=== PATIENT | female | born 1990 | race Caucasian/White ===

== ENCOUNTER 2016-10-31 11:43 | Inpatient (IN) | payer BC ==
[2016-10-31] MEDS ORDERED: Sodium Chloride 0.9% 10 ML Syringe FLUSH PRN (13:51)
[2016-10-31] MEDS ORDERED: Carboprost Tromethamine 250 MCG/1 ML Amp IM PRN (13:51)
[2016-10-31] MEDS ORDERED: Misoprostol 400 MCG (4 X 100 MCG TAB) RECTAL PRN (13:51)
[2016-10-31] MEDS ORDERED: Ondansetron 4 MG/2 ML SDV IV PRN (13:51)
[2016-10-31] MEDS ORDERED: Lactated Ringers 500 ML IV ONE (13:51)
[2016-10-31] MEDS ORDERED: Methylergonovine 0.2 MG/1 ML Amp IM PRN (13:51)
[2016-10-31] MEDS ORDERED: Oxytocin/Normal Saline 30 UNIT/500 ML BAG IV SCH (14:15)
[2016-10-31] MEDS ORDERED: fentaNYL 100 MCG/2 ML SDV ITHECAL ONE (16:01)
[2016-10-31] MEDS ORDERED: hydrOXYzine HCl 25 MG Tab PO PRN (17:59)
[2016-10-31] MEDS: Lactated Ringers 1,000 ML IV SCH ×2 (18:11→20:00)
[2016-10-31] MEDS ORDERED: ePHEDrine 50 MG/ML SDV ONE (19:39)
[2016-10-31] MEDS ORDERED: fentaNYL 100 MCG/2 ML SDV ONE (19:39)
--- NOTE | 2016-10-31 20:07 | PCM.PREANE ---
Preanesthetic Assessment - Procedure Proposed Procedure: Intrathecal Narcotic for Labor Pain - Anesthesia/Transfusion/Family Hx Anesthesia History: No Prior Anesthesia Family History of Anesthesia Reaction: No Transfusion History: No Prior Transfusion(s) Intubation History: Unknown - Review of Systems General: No Symptoms Pulmonary: No Symptoms Cardiovascular: No Symptoms Gastrointestinal: No symptoms Neurological: No Symptoms Other: Reports: None - Physical Assessment NPO Status Date: 10/31/16 NPO Status Time: 11:00 Pulse: 85 O2 Sat by Pulse Oximetry: 99 Respiratory Rate: 16 Blood Pressure: 136/85 Temperature: 98.1 C Vital Signs: Last Vital Signs Temp 36.9 C 10/31/16 16:03 Pulse 83 10/31/16 16:03 Resp 16 10/31/16 16:03 BP 134/90 10/31/16 16:03 Pulse Ox Height: 1.68 m Weight: 72.575 kg ASA Class: 2 Mental Status: Alert & Oriented x3 Dentition: Reports: Normal Dentition ROM/Head Extension: Full Lungs: Clear to auscultation, Normal respiratory effort Cardiovascular: Regular Rate, Regular Rhythm - Lab Values: Laboratory Last Values WBC 14.0 10^3/uL (5.0-10.0) H 10/31/16 14:10 RBC 4.24 10^6/uL (4.2-5.4) 10/31/16 14:10 Hgb 12.7 g/dL (12.0-16.0) 10/31/16 14:10 Hct 37.2 % (37.0-47.0) 10/31/16 14:10 MCV 87.7 fL (80-100) 10/31/16 14:10 MCH 30.0 pg (27.0-34.0) 10/31/16 14:10 MCHC 34.1 g/dL (33.0-35.0) 10/31/16 14:10 Plt Count 206 10^3/uL (150-450) 10/31/16 14:10 - Allergies Allergies/Adverse Reactions: Allergies Allergy/AdvReac Type Severity Reaction Status Date / Time Penicillins Allergy Cannot Verified 10/31/16 14:17 Remember Sulfa (Sulfonamide Allergy Cannot Verified 10/31/16 14:17 Antibiotics) Remember - Blood Blood Available: No - Anesthesia Plan Pre-Op Medication Ordered: None - Acknowledgements Anesthesia Type Planned: Spinal Pt an Appropriate Candidate for the Planned Anesthesia: Yes Alternatives and Risks of Anesthesia Discussed w Pt/Guardian: Yes Pt/Guardian Understands and Agrees with Anesthesia Plan: Yes PreAnesthesia Questionnaire - Past Health History Medical/Surgical History: Denies Medical/Surgical History Hematologic History: Reports: Anemia - Infectious Disease History Infectious Disease History: Reports: Shingles, Other (see below) Other Infectious Disease History: hx of shingles - SUBSTANCE USE Smoking Status *Q: Never Smoker Tobacco Use Within Last Twelve Months: No Second Hand Smoke Exposure: No Recreational Drug Use History: No - HOME MEDS Home Medications: Home Meds Cholecalciferol (Vitamin D3) [Vitamin D] 1 tab PO DAILY 10/31/16 [History] Ferrous Sulfate [Iron] 1 tab PO BID 10/31/16 [History] Vits #93/Iron Fum/FA [ Formula Tablet] 1 tab PO DAILY 10/31/16 [History] - CURRENT (IN HOUSE) MEDS Current Meds: Current Medications Acetaminophen (Tylenol) 650 mg PO Q4H PRN PRN Reason: Pain (Mild 1-3) and fever Carboprost Tromethamine (Hemabate Ds) 250 mcg IM ASDIRECTED PRN PRN Reason: HEMORRHAGE Hydroxyzine HCl (Atarax) 50 mg PO ONETIME PRN PRN Reason: Pain Last Admin: 10/31/16 18:09 Dose: 50 mg Lactated Ringer's (Ringers, Lactated) 1,000 mls @ 125 mls/hr IV ASDIRECTED DAYAN Last Admin: 10/31/16 18:11 Dose: 125 mls/hr Oxytocin/Sodium Chloride (Pitocin In Ns 30 Unit/500 Ml) 30 unit in 500 mls @ 500 mls/hr IV TITRATE DAYAN PRN Reason: Protocol Methylergonovine Maleate (Methergine) 0.2 mg IM ASDIRECTED PRN PRN Reason: Hemorrhage Misoprostol (Cytotec) 800 mcg RECTAL ASDIRECTED PRN PRN Reason: Hemorrhage Ondansetron HCl (Zofran) 4 mg IV Q4H PRN PRN Reason: Nausea/Vomiting Last Admin: 10/31/16 19:35 Dose: 4 mg Sodium Chloride (Saline Flush) 10 ml FLUSH ASDIRECTED PRN PRN Reason: Keep Vein Open Discontinued Medications Ephedrine Sulfate (Ephedrine Sulfate) Confirm Administered Dose 50 mg .ROUTE .STK-MED ONE Stop: 10/31/16 19:40 Fentanyl (Sublimaze) Confirm Administered Dose 100 mcg .ROUTE .STK-MED ONE Stop: 10/31/16 19:40 Lactated Ringer's (Ringers, Lactated) 500 mls @ 500 mls/hr IV .BOLUS ONE Stop: 10/31/16 14:50 Sufentanil Citrate (Sufenta) Confirm Administered Dose 50 mcg .ROUTE .STK-MED ONE Stop: 10/31/16 19:41
--- NOTE | 2016-10-31 20:26 | PCM.SN ---
- Free Text/Narrative Note: Intrathecal Narcotic note: Patient ID'd consent signed after Risk benefit discussed. Preloaded with 1 liter fluid. Patient in sitting position, L4-5 space id'd sterile prep with Betadine and drape. Skin wheel with 1% lidocaine. 22 G Pencane needle advanced into SA space via 18 G needle. No Parasthesia, No Blood and Positive CSF, 6 mg Hyperbaric Marcaine, 20 mcg sufentanyl, 30 mcg fentanyl and 1 ml preservative free normal saline injected into the SA space. Immediate relieve during contractions is experienced by patient. Level T10 Bilateral. VSS
--- NOTE | 2016-10-31 23:02 | HP ---
REASON FOR ADMISSION: Onset of labor. HISTORY OF PRESENT ILLNESS: This delightful 26-year-old white female, 1, para 0, at 39 weeks' gestation presented today to the clinic with onset of contractions at 02:00 a.m. Reports that they have been getting progressively stronger and closer together. Describes some bloody show, but denies any active bright red bleeding and no leakage of fluid. The baby has been active. Her contractions on examination in the clinic were 2 minutes apart lasting approximately 45 seconds. Last week, her cervix was closed, long, and thick at a -2 station. This week, she was found to be 3 cm dilated, 90% effaced with the bag of water intact, vertex presentation in a TRUPTI position. She was having contractions every 2 to 3 minutes in the office and these were mild to moderate on palpation. She was subsequently sent over to the hospital for further evaluation and admission. Blood pressure was 130/90 on admission to the clinic. Her course was started in her first trimester, and she has been compliant with her visits. Her blood type is A positive, antibody screen was negative. Baseline hemoglobin is 13.5 with rechecks of 13.5 and 11.8. Platelet counts 276 and 241. Rubella immune. RPR nonreactive. HIV negative. Hepatitis B surface antigen nonreactive. TSH within normal limits. Hepatitis C nonreactive. One-hour sugar screen was 133 and a 3-hour testing was not completed. Her group B strep was negative. Ultrasound was done at 20-1/2 weeks' gestation with normal anatomy, posterior placenta, and they were not interested in gender. She did receive a flu shot and Tdap during this . She does have a history of prior chickenpox and shingles. GRAIN LOADER HISTORY: Otherwise noncontributory. CURRENT MEDICATIONS: Include her vitamins and iron b.i.d. ALLERGIES: Include penicillin and sulfa, though she is unsure of any reaction and it was just told that she was allergic to these when she was a child. PAST MEDICAL HISTORY: Otherwise unremarkable. She had oral surgery, but otherwise has not had any significant surgical history. FAMILY HISTORY: Positive for breast cancer, thyroid disease, and alcohol disease. Please see her records for details. SOCIAL HISTORY: to [place] in 2009. They have a dog. 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 Her , Francisco, teaches agricultural education classes in [employer]. They live 15 miles away in [place]. This is their 1st child, and they do not know the gender. She is a nonsmoker and has never smoked. She has no known history of alcohol or drug abuse. REVIEW OF SYSTEMS: Otherwise unremarkable. IMMUNIZATIONS: Up to date as noted. OBJECTIVE: Vital Signs: As noted on admit. HEENT: Negative. Lungs: Clear. Heart: Sounds regular. Abdomen: Gravid. : Cervix is 3 cm, 90%, bag of water is intact, -2 station. TRUPTI as noted. Extremities: With no significant edema. NST was showing a reactive reassuring tracing with baseline 145. Good variability. No decelerations. LABORATORY DATA: Hemoglobin is 12.7, platelet count 206. IMPRESSION: 1. A 26-year-old white female, 1, para 0 at 39 weeks' gestation. 2. Primigravida and early active labor. 3. Reactive reassuring NST. 4. A positive blood type. 5. Rubella immune. 6. Group B strep negative. 7. Hemoglobin 12.7, platelets 206. PLAN: The patient was admitted with routine admit orders. We will continue to follow her closely. She does have a plan and that has been reviewed with her. We will continue to follow and further management pending her clinical course in labor. ADDENDUM: At 04:30 p.m., the patient is making progress. Her cervix is now 5 cm dilated and 95+ percent effaced. The vertex is at -1 station between contractions. Bulging bag of water is noted and this was artificially ruptured after discussion with the patient and her . The heart tones have remained reassuring and the fluid is noted to be clear. We will continue to monitor the situation closely with further management pending her course in labor. All their questions were answered. [facility] /[id number]
[2016-11-01] MEDS ORDERED: Benzocaine/Menthol 20%-0.5% Spray 56 GM Canister TOP PRN (02:25)
[2016-11-01] MEDS ORDERED: Zolpidem 5 MG Tab PO PRN (02:25)
[2016-11-01] MEDS ORDERED: Simethicone 80 MG Tab.Chew PO PRN (02:25)
--- NOTE | 2016-11-01 02:34 | PCM.DEL ---
L & D Note - General Info Date of Service: 11/01/16 (time of delivery 0201) Mother's Due Date: 11/05/16 (39w1d) - Delivery Note Labor: spontaneous, augmented by ARM Delivery Outcome: Livebirth Delivery Method: Spontaneous Vaginal Delivery Infant Delivery Mode: Vacuum Extraction Presentation: Right Occiput Anterior (TRUPTI) Nuchal cord: none Prep: povidone-iodine (betadine Anesthesia Type: Intrathecal Anesthetic: lidocaine (xylocaine) 1% plain Local anesthetic volume: 4cc Amniotic Fluid Description: Clear Episiotomy Type: None Laceration: 1st degree, other (midline) Suture type: other Suture size: 3-0 Placenta: intact, spontaneous, expressed Cord: 3 vessels Estimated blood loss: 250 Resuscitation needed: No : suctioned, bulb syringe, stimulated (to mother's abdomen) Provider: Ann Marie Fraser Score 1 min: 9 Score 5 min: 9 Second Stage Interventions: Reports: Encouragement Given, Laboring Down (in tub) , Pushing Effectively, Pushing Ineffectively, Pushing, Knee Chest Position, Pushing, Pulls Own Legs Back, Pushing, Squat Bar Pulling on Sheet, Pushing, Squatting Vacuum Extractor Progress Note - Alternative Labor Strategies Considered Alternative labor strategies considered:: Reports: yes Strategies considered:: Reports: Contraction intensity adequate, Position changes used to facilitate rotation & descent, Empty bladder (catheter per hmb-- 500+cc very clear urine), Rest Indications considered:: Reports: yes Indications:: Reports: Prolonged 2nd stage, Shortening of 2nd stage for maternal benefit, Suspicion of immediate or potential compromise Time out:: Reports: yes - Patient Prepared Patient prepared:: Reports: yes Informed consent:: Reports: Yes, Verbal Risks: Reports: yes Anesthesia/analgesia adequate:: Reports: yes (intrathecal) - Probability of Success High probability of success:: Reports: yes weight estimated:: Reports: AGA Patient diabetic:: Reports: no Pelvis adequate:: Reports: yes Position:: TRUPTI Asynclitic:: Reports: no Station:: +2 - Application Time Maximum application time & number of pop-offs predetermined:: Reports: yes Total application time (min): *max=20min: 2 (1 contraction) Number of times cup disengaged:: 0 Type of vacuum used:: Reports: Low profile Vacuum Extraction: Successful - Exit Strategy Exit strategy available:: Reports: yes and resuscitation teams readily available:: Reports: yes Consult as indicated:: not indicated - General Info Functional Status: Reports: pain controlled - Review of Systems General: Reports: No Symptoms HEENT: Reports: no symptoms Pulmonary: Reports: no symptoms Cardiovascular: Reports: No Symptoms Gastrointestinal: Reports: No symptoms Genitourinary: Reports: no symptoms Musculoskeletal: Reports: no symptoms Skin: Reports: no symptoms Neurological: Reports: No Symptoms Psychiatric: Reports: no symptoms - Patient Data Vitals - most recent: Last Vital Signs Temp 97.7 F 11/01/16 01:38 Pulse 109 H 11/01/16 01:38 Resp 18 11/01/16 01:38 BP 161/91 H 11/01/16 01:38 Pulse Ox 98 10/31/16 20:15 Weight - most recent: 160 lb I&O - last 24 hours: Intake & Output 10/31/16 10/31/16 11/01/16 14:59 22:59 06:59 Output Total 500 Balance -500 Lab Results last 24 hrs: Laboratory Results - last 24 hr 10/31/16 Range/Units 14:10 WBC 14.0 H (5.0-10.0) 10^3/uL RBC 4.24 (4.2-5.4) 10^6/uL Hgb 12.7 (12.0-16.0) g/dL Hct 37.2 (37.0-47.0) % MCV 87.7 (80-100) fL MCH 30.0 (27.0-34.0) pg MCHC 34.1 (33.0-35.0) g/dL Plt Count 206 (150-450) 10^3/uL Med Orders - Current: Current Medications Acetaminophen (Tylenol) 650 mg PO Q4H PRN PRN Reason: Pain (Mild 1-3) and fever Benzocaine/Menthol (Dermoplast Pain Relief [place]) 0 gm TOP Q4H PRN PRN Reason: Perineal comfort measures Carboprost Tromethamine (Hemabate Ds) 250 mcg IM ASDIRECTED PRN PRN Reason: HEMORRHAGE Docusate Sodium (Colace) 100 mg PO BID PRN PRN Reason: Constipation Hydroxyzine HCl (Atarax) 50 mg PO ONETIME PRN PRN Reason: Pain Last Admin: 10/31/16 18:09 Dose: 50 mg Lactated Ringer's (Ringers, Lactated) 1,000 mls @ 125 mls/hr IV ASDIRECTED DAYAN Last Admin: 10/31/16 20:00 Dose: 125 mls/hr Oxytocin/Sodium Chloride (Pitocin In Ns 30 Unit/500 Ml) 30 unit in 500 mls @ 500 mls/hr IV TITRATE DAYAN PRN Reason: Protocol Ibuprofen (Motrin) 800 mg PO Q8H PRN PRN Reason: Mild Pain or Fever Methylergonovine Maleate (Methergine) 0.2 mg IM ASDIRECTED PRN PRN Reason: Hemorrhage Misoprostol (Cytotec) 800 mcg RECTAL ASDIRECTED PRN PRN Reason: Hemorrhage Ondansetron HCl (Zofran) 4 mg IV Q4H PRN PRN Reason: Nausea/Vomiting Last Admin: 10/31/16 19:35 Dose: 4 mg Prenat Multivit/Pharmacy Analyst/Iron/Folic Ac ( Plus Iron) 1 each PO DAILY [facility] Simethicone (Simethicone) 80 mg PO Q4H PRN PRN Reason: Gas Sodium Chloride (Saline Flush) 10 ml FLUSH ASDIRECTED PRN PRN Reason: Keep Vein Open Zolpidem Tartrate (Ambien) 5 mg PO BEDTIME PRN PRN Reason: Insomnia Stop: 11/01/16 21:01 Discontinued Medications Ephedrine Sulfate (Ephedrine Sulfate) Confirm Administered Dose 50 mg .ROUTE .STK-MED ONE Stop: 10/31/16 19:40 Fentanyl (Sublimaze) Confirm Administered Dose 100 mcg .ROUTE .STK-MED ONE Stop: 10/31/16 19:40 Lactated Ringer's (Ringers, Lactated) 500 mls @ 500 mls/hr IV .BOLUS ONE Stop: 10/31/16 14:50 Sufentanil Citrate (Sufenta) Confirm Administered Dose 50 mcg .ROUTE .STK-MED ONE Stop: 10/31/16 19:41 - Exam General: alert, oriented HEENT: Pupils equal, Pupils reactive, EOMI, Mucous membr. moist/pink Neck: supple Lungs: Clear to auscultation, Normal respiratory effort Cardiovascular: Regular Rate, Regular Rhythm Abdomen: bowel sounds present, soft, no tenderness, no distension (Female) Exam: Normal external exam, Normal speculum exam, Normal bimanual exam Back Exam: normal inspection, full range of motion Extremities: no edema Skin: warm, dry, intact Wound/Incisions: healing well Neurological: no new focal deficit Psy/Mental Status: alert, normal affect, normal mood - Problem List & Annotations (1) Primiparous in third trimester SNOMED Code(s): 94938127, 38319939 Code(s): Z34.03 - ENCNTR FOR SUPRVSN OF NORMAL FIRST PREG, THIRD TRIMESTER Status: Acute Current Visit: Yes (2) Vacuum extractor delivery, delivered SNOMED Code(s): 745867780 Code(s): O66.5 - ATTEMPTED APPLICATION OF VACUUM EXTRACTOR AND FORCEPS Status: Acute Current Visit: Yes (3) Vacuum extraction, delivered, current hospitalization SNOMED Code(s): 746960978 Code(s): O66.5 - ATTEMPTED APPLICATION OF VACUUM EXTRACTOR AND FORCEPS Status: Acute Current Visit: Yes (4) Mother currently breast-feeding SNOMED Code(s): 781147026 Code(s): XGH2767 - Status: Acute Current Visit: Yes (5) Blood type A+ SNOMED Code(s): 391055161 Code(s): Z67.10 - TYPE A BLOOD, RH POSITIVE Status: Acute Current Visit: Yes (6) Rubella immune SNOMED Code(s): 017674675 Code(s): Z78.9 - OTHER SPECIFIED HEALTH STATUS Status: Acute Current Visit: Yes (7) Group B Streptococcus not isolated SNOMED Code(s): 683085546 Code(s): TWO0836 - Status: Acute Current Visit: Yes - Problem List Review Problem List Initiated/Reviewed/Updated: Yes - My Orders Last 24 Hours: My Active Orders 10/31/16 13:51 Patient Status [ADT] Routine Communication Order [RC] ASDIRECTED Notify Provider Vital Signs OB [RC] ASDIRECTED Notify Provider [RC] PRN Up ad Amanda [RC] ASDIRECTED Vital Signs [RC] PER UNIT ROUTINE Acetaminophen [Tylenol] 650 mg PO Q4H PRN Carboprost Tromethamine [Hemabate DS] 250 mcg IM ASDIRECTED PRN Methylergonovine [Methergine] 0.2 mg IM ASDIRECTED PRN Misoprostol [Cytotec] 800 mcg RECTAL ASDIRECTED PRN Ondansetron [Zofran] 4 mg IV Q4H PRN Sodium Chloride 0.9% [Saline Flush] 10 ml FLUSH ASDIRECTED PRN Saline Lock Insert [OM.PC] Routine Resuscitation Status Routine 10/31/16 14:00 Pump Management, Intrathecal [RC] ASDIRECTED Lactated Ringers [Ringers, Lactated] 1,000 ml IV ASDIRECTED 10/31/16 14:15 Oxytocin/Normal Saline [Pitocin in NS 30 UNIT/500 ML] 30 unit in 500 ml IV TITRATE 10/31/16 17:59 hydrOXYzine HCl [Atarax] 50 mg PO ONETIME PRN 11/01/16 02:25 Consult to Application Development Liaison [CONS] Routine Benzocaine/Menthol [Dermoplast Pain Relief [place]] See Dose Instructions TOP Q4H PRN Docusate Sodium [Colace] 100 mg PO BID PRN Ibuprofen [Motrin] 800 mg PO Q8H PRN Simethicone 80 mg PO Q4H PRN Zolpidem [Ambien] 5 mg PO BEDTIME PRN Assess Lochia [WOMSER] Per Unit Routine Assess Uterine Involution [WOMSER] Per Unit Routine Breast Pump [WOMSER] Per Unit Routine Ice Therapy [OM.PC] Per Unit Routine Perineal Care [OM.PC] Per Unit Routine Sitz Bath [OM.PC] Per Unit Routine 11/01/16 09:00 Vit with Ca/FA/Iron [ Plus Iron] 1 each PO DAILY 11/01/16 Breakfast Regular Diet [DIET] 11/03/16 05:11 CBC W/O DIFF,HEMOGRAM [HEME] AM - Assessment Assessment:: 26yo WF G1 now P1 s/p vacuum-assisted vaginal delivery @ 39w1d APGARs 9 & 9 EBL 250 female born @ 201 on 11-01-16 weight pending A+ GBS negative RI Hgb 12.7 PLT 206 - Plan Plan:: Routine care: consult hgb check 2nd PPD All questions answered for Vish marquis
[2016-11-01] MEDS: Ibuprofen 800 MG Tab PO PRN ×2 (08:51→19:41)
[2016-11-01] MEDS: Docusate Sodium 100 MG Cap PO PRN ×2 (08:51→19:41)
[2016-11-01] MEDS: Prenatal Multivitamin with Calcium/Folic Acid/Iron Tab PO SCH (08:51)
[2016-11-01] MEDS: Acetaminophen 325 MG Tab PO PRN (17:09)
[2016-11-02] MEDS: Acetaminophen 325 MG Tab PO PRN ×2 (01:11→10:32)
[2016-11-02] MEDS: Ibuprofen 800 MG Tab PO PRN ×3 (05:18→21:55)
--- NOTE | 2016-11-02 09:04 | PCM.SN ---
- Free Text/Narrative Note: DOS: 11-02-16 PPD #1 doing well s/p VAVD viable female infant . some urinary incontinence sx today--reviewed by nursing staff/Olu eating/ambulating ok. Afebrile with VSS exam WNL See nursing notes for further details. Contiue routine PP cares. hgb ordered for a.m. 5-6 Giacomo to see and likely discharge tomorrow. plan 6-8 week PP check, sooner prn. All questions answered today for Oksana. hmb
[2016-11-02] MEDS: Docusate Sodium 100 MG Cap PO PRN ×2 (10:32→21:58)
[2016-11-02] MEDS: Prenatal Multivitamin with Calcium/Folic Acid/Iron Tab PO SCH (10:32)
--- NOTE | 2016-11-03 08:57 | PCM.PNPP ---
- General Info Date of Service: 11/03/16 (PPD # 2 S/P Vacuum assisted vaginal delivery) Functional Status: Reports: pain controlled, tolerating diet, ambulating, urinating - Review of Systems General: Reports: No Symptoms HEENT: Reports: no symptoms Pulmonary: Reports: no symptoms Cardiovascular: Reports: No Symptoms Gastrointestinal: Reports: No symptoms Genitourinary: Reports: no symptoms Musculoskeletal: Reports: no symptoms Skin: Reports: no symptoms Neurological: Reports: No Symptoms Psychiatric: Reports: no symptoms - General Info Date of Service: 11/03/16 (PPD # 2 S/P Vacuum assisted vaginal delivery) - Patient Data Vital Signs - most recent: Last Vital Signs Temp 98.3 F 11/02/16 20:00 Pulse 90 11/02/16 20:00 Resp 16 11/02/16 20:00 BP 122/81 11/02/16 22:00 Pulse Ox 100 11/02/16 20:00 Weight - most recent: 160 lb Lab Results - last 24 hrs: Laboratory Results - last 24 hr 11/03/16 Range/Units 05:45 WBC 12.4 H (5.0-10.0) 10^3/uL RBC 3.69 L (4.2-5.4) 10^6/uL Hgb 11.1 L (12.0-16.0) g/dL Hct 32.8 L (37.0-47.0) % MCV 88.9 (80-100) fL MCH 30.1 (27.0-34.0) pg MCHC 33.8 (33.0-35.0) g/dL Plt Count 175 (150-450) 10^3/uL Med Orders - Current: Current Medications Acetaminophen (Tylenol) 650 mg PO Q4H PRN PRN Reason: Pain (Mild 1-3) and fever Last Admin: 11/02/16 10:32 Dose: 650 mg Benzocaine/Menthol (Dermoplast Pain Relief [place]) 0 gm TOP Q4H PRN PRN Reason: Perineal comfort measures Last Admin: 11/01/16 02:30 Dose: 1 applic Carboprost Tromethamine (Hemabate Ds) 250 mcg IM ASDIRECTED PRN PRN Reason: HEMORRHAGE Docusate Sodium (Colace) 100 mg PO BID PRN PRN Reason: Constipation Last Admin: 05/05/17 21:58 Dose: 100 mg Hydroxyzine HCl (Atarax) 50 mg PO ONETIME PRN PRN Reason: Pain Last Admin: 10/31/16 18:09 Dose: 50 mg Lactated Ringer's (Ringers, Lactated) 1,000 mls @ 125 mls/hr IV ASDIRECTED [facility] Last Infusion: 11/01/16 05:09 Dose: Infused Oxytocin/Sodium Chloride (Pitocin In Ns 30 Unit/500 Ml) 30 unit in 500 mls @ 500 mls/hr IV TITRATE DAYAN PRN Reason: Protocol Last Titration: 11/01/16 04:30 Dose: Infused Ibuprofen (Motrin) 800 mg PO Q8H PRN PRN Reason: Mild Pain or Fever Last Admin: 11/02/16 21:55 Dose: 800 mg Methylergonovine Maleate (Methergine) 0.2 mg IM ASDIRECTED PRN PRN Reason: Hemorrhage Misoprostol (Cytotec) 800 mcg RECTAL ASDIRECTED PRN PRN Reason: Hemorrhage Ondansetron HCl (Zofran) 4 mg IV Q4H PRN PRN Reason: Nausea/Vomiting Last Admin: 10/31/16 19:35 Dose: 4 mg Prenat Multivit/Orchestrator/Iron/Folic Ac ( Plus Iron) 1 each PO DAILY [facility] Last Admin: 11/02/16 10:32 Dose: 1 each Simethicone (Simethicone) 80 mg PO Q4H PRN PRN Reason: Gas Sodium Chloride (Saline Flush) 10 ml FLUSH ASDIRECTED PRN PRN Reason: Keep Vein Open Discontinued Medications Ephedrine Sulfate (Ephedrine Sulfate) Confirm Administered Dose 50 mg .ROUTE .STK-MED ONE Stop: 10/31/16 19:40 Last Admin: 11/01/16 05:08 Dose: Not Given Fentanyl (Sublimaze) Confirm Administered Dose 100 mcg .ROUTE .STK-MED ONE Stop: 10/31/16 19:40 Last Admin: 11/01/16 05:08 Dose: Not Given Fentanyl (Sublimaze) 30 mcg ITHECAL .STK-MED ONE Stop: 10/31/16 16:02 Lactated Ringer's (Ringers, Lactated) 500 mls @ 500 mls/hr IV .BOLUS ONE Stop: 10/31/16 14:50 Last Admin: 11/01/16 05:08 Dose: Not Given Sufentanil Citrate (Sufenta) Confirm Administered Dose 50 mcg .ROUTE .STK-MED ONE Stop: 10/31/16 19:41 Last Admin: 11/01/16 05:08 Dose: Not Given Sufentanil Citrate (Sufenta) 20 mcg ITHECAL .STK-MED ONE Stop: 10/31/16 16:02 Zolpidem Tartrate (Ambien) 5 mg PO BEDTIME PRN PRN Reason: Insomnia Stop: 11/01/16 21:01 - Interaction Infant Disposition, : [place] at Bedside Infant Interaction: Holding Feeding: Breastfed Infant; Nursed Well Support Person: - Recovery Exam Fundal Tone: Firm Fundal Level: 2 Fingerbreadths Below Umbilicus Fundal Placement: Midline Lochia Amount: Scant Lochia Color: Rubra/Red Perineum Description: Intact, Minimal Bruising/Swelling Episiotomy/Laceration: Approximated Bladder Status: Voiding Urinary Elimination: Voided - Exam General: alert, oriented, cooperative, no acute distress HEENT: Pupils equal, Pupils reactive Neck: supple Lungs: Clear to auscultation, Normal respiratory effort Cardiovascular: Regular Rate, Regular Rhythm, No Murmurs Abdomen: bowel sounds present, soft, no tenderness, no distension Extremities: no edema Skin: warm, dry, intact Neurological: no new focal deficit, normal speech Psy/Mental Status: alert, normal affect, normal mood - Problem List Review Problem List Initiated/Reviewed/Updated: Yes - Assessment Assessment:: PPD # 2 S/P Vacuum assisted vaginal delivery Doing well Desires discharge - Plan Plan:: Discharge to home Follow-up with Dr. Fraser at 6 week check up and with baby next week Tylenol/Ibuprofen for discomfort All questions answered.
[2016-11-03] MEDS: Prenatal Multivitamin with Calcium/Folic Acid/Iron Tab PO SCH (09:03)
[2016-11-03] MEDS: Ibuprofen 800 MG Tab PO PRN (09:05)
[2016-11-03] MEDS: Docusate Sodium 100 MG Cap PO PRN (09:07)
[2016-11-03 12:08] VITALS: BP 111/65
--- NOTE | 2016-11-04 04:35 | DISCH ---
INDICATION FOR ADMISSION: Ms. Carvalho is a 26-year-old, 1, para 0 female, who reported to Labor and Delivery at 39 weeks' gestation after coming over from the [facility] clinic being dilated to 3 cm, 90% effaced, -2 station with increasing force and frequency of contractions. Once she got to the hospital in Labor and Delivery, she was noted to be 5 cm dilated, so artificial rupture of membranes occurred with clear fluid noted. She tolerated her labor quite well. Once she got uncomfortable, intrathecal anesthesia was obtained. When she got to completely dilated, she did have a prolonged second stage labor. She was placed in Labat's and then because of the prolonged second stage of labor, she had a vacuum-assisted vaginal delivery, TRUPTI of a viable female infant, weighing 7 pounds, 4 ounces 18-3/4 inches long with scores of 9 at 1 minute and 9 at 5 minutes over a first-degree midline perineal laceration repair with 3-0 chromic suture without difficulty. She had 250 mL blood loss. The patient tolerated this quite well. She recovered for a couple of hours. The did well. The rest of her hospital stay was without incident. She tolerated her diet well and ambulated quite well. She had minimal lochia. She was discharged to home on day #2. LABORATORY AND DIAGNOSTIC STUDIES: On 10/31/2016; WBC 14.0, hemoglobin 12.7, hematocrit 37.2, platelet count 206,000. On 11/03/2016; WBC 12.4, hemoglobin 11.1, hematocrit 32.8, platelet count 175,000. Blood type A positive, antibody screen negative. DISCHARGE INSTRUCTIONS: 1. Discharged to home. 2. Follow up with Dr. Fraser next week with her infant and then at her 6-week visit. 3. No douching, tampons, or intercourse for 6 weeks. 4. Discharge instructions including activity, followup, medications, diet, and wound care were discussed with the patient. She understands these and is willing to comply with these. 5. Ibuprofen and Tylenol for discomfort p.r.n. DISCHARGE DIAGNOSES: 1. A 39-week intrauterine . 2. Active labor. 3. Artificial rupture of membranes. 4. Prolonged second stage of labor. 5. Vacuum assisted vaginal delivery, right occiput anterior of a viable female , weighing 7 pounds, 4 ounces and 18-3/4 inches long with scores of 9 at 1 minute and 9 at 5 minutes. 6. Intrathecal anesthesia. 7. First-degree midline perineal laceration repair with 3-0 chromic suture. [facility] /[id number]
--- NOTE | 2016-11-05 15:31 | PCM.POSTAN ---
POST ANESTHESIA ASSESSMENT - MENTAL STATUS Mental Status: alert, oriented - VITAL SIGNS Pulse Rate: 88 SaO2: 100 Resp Rate: 16 Blood Pressure: 134/68 Temperature: 36.7 C - RESPIRATORY Respiratory Status: respiratory rate WNL, airway patent, O2 saturation stable - CARDIOVASCULAR CV Status: pulse rate WNL, blood pressure stable - GASTROINTESTINAL GI Status: no symptoms - PAIN Pain Score: 0 - POST OP HYDRATION Hydration Status: adequate & stable (ambulating and tolerated food and fluid. Pain Free)
== END 2016-11-03 11:50 | disposition home or self-care (01) | DRG 560 ==
LOC: DL.OBCHECK 11:43 → INTOOBSV 12:40 → DL.OB 12:40 → OBSVTOIN 11-01 02:01 → DL.MS 11-02 13:45
PROVIDERS: ADMIT Family Medicine; ATTEND Family Medicine
PROC: 10D07Z6 Extraction of Products of Conception, Vacuum, Via Natural or Artificial Opening (ICD-10-PCS; principal; 2016-11-01)
PROC: 0HQ9XZZ Repair Perineum Skin, External Approach (ICD-10-PCS; 2016-11-01)
PROC: 10907ZC Drainage of Amniotic Fluid, Therapeutic from Products of Conception, Via Natural or Artificial Opening (ICD-10-PCS; 2016-11-01)
PROC: 00HU33Z Insertion of Infusion Device into Spinal Canal, Percutaneous Approach (ICD-10-PCS; 2016-11-01)
PROC: 3E0R3CZ (ICD-10-PCS; 2016-11-01)
DX: O63.1 Prolonged second stage (of labor) (principal); O70.0 First degree perineal laceration during delivery; Z3A.39 39 weeks gestation of pregnancy; Z37.0 Single live birth
CPT/HCPCS: 36415; 85027; A9270-GY; J2405; J2590; J3010; J7120

== ENCOUNTER 2020-11-11 07:38 | Inpatient (IN) | payer BC ==
[2020-11-11] MEDS ORDERED: Methylergonovine 0.2 MG/1 ML Amp IM PRN (08:19)
[2020-11-11] MEDS ORDERED: Carboprost Tromethamine 250 MCG/1 ML Amp IM PRN ×2 (08:19→13:48)
[2020-11-11] MEDS ORDERED: Acetaminophen 325 MG Tab PO PRN ×2 (08:19→13:48)
[2020-11-11] MEDS ORDERED: Sodium Chloride 0.9% 10 ML Syringe FLUSH PRN ×2 (08:19→13:48)
[2020-11-11] MEDS ORDERED: Lidocaine 1% 30 ML SDV INJECT PRN (08:19)
[2020-11-11] MEDS ORDERED: Tranexamic Acid 1,000 MG in Sodium Chloride 0.9% 100 ML IV PRN ×2 (08:19→13:48)
[2020-11-11] MEDS ORDERED: Misoprostol 400 MCG (4 X 100 MCG TAB) RECTAL PRN ×2 (08:19→13:48)
--- NOTE | 2020-11-11 08:37 | PCM.LDHP ---
L&D History of Present Illness - General Date of Service: 11/11/20 Admit Problem/Dx: Patient Status Order with Admit Dx/Problem Labor 11/11/20 08:20 Patient Status [ADT] Routine Admission Diagnosis/Problem Admission Diagnosis/Problem Labor without complication 11/11/20 08:30 Source of Information: Patient History Limitations: Reports: No Limitations - History of Present Illness Introduction:: Rossy Carvalho is 30 year old female at 37w3d gestation who presents today with concern for painful regular contractions. She states that they started becoming more uncomfortable around 3 this morning. They have been more painful and closer together since around 6 this morning. She rates the pain 4/10, she is breathing through them. She states she is losing her mucus plug, so she has had some slight bleeding. She states that she had her membranes stripped at her visit yesterday. She denies any leakage of fluid. She has been feeling adequate movement. She denies any other concerns. Location, : Reports: Abdomen Severity: Moderate - Related Data Allergies/Adverse Reactions: Allergies Allergy/AdvReac Type Severity Reaction Status Date / Time Penicillins Allergy Cannot Verified 11/03/20 09:18 Remember Sulfa (Sulfonamide Allergy Cannot Verified 11/03/20 09:18 Antibiotics) Remember Home Medications: Home Meds Cholecalciferol (Vitamin D3) [Vitamin D] 1 tab PO DAILY 10/31/16 [History] Ferrous Sulfate [Iron] 1 tab PO BID 10/31/16 [History] Vits #93/Iron Fum/FA [ Formula Tablet] 1 tab PO DAILY 10/31/16 [History] Folic Acid 1 mg PO DAILY 06/03/18 [History] Past Medical History - Past Health History Medical/Surgical History: Denies Medical/Surgical History [employer] History: Reports: Other OB/BYN History: prior VAVD 7lb 4.4oz female/ [place] Hematologic History: Reports: Anemia - Infectious Disease History Infectious Disease History: Reports: Chicken Pox Other Infectious Disease History: hx of shingles Social & Family History - Family History Family Medical History: Unobtainable - Caffeine Use Caffeine Use: Reports: None - Living Situation & Occupation Living situation: Reports: , with Spouse, with Family Occupation: Employed H&P Review of Systems - Review of Systems: Review Of Systems: See Below Free Text/Narrative: Review of Systems: General: Alert and in no acute distress. HEENT: Negative for headache, vision changes, nasal congestion, or sore throat. Respiratory: Negative for cough, shortness of breath Cardiovascular: Negative for chest pain, lower extremity edema Gastrointestinal: Negative for epigastric pain, abdominal pain, nausea, or vomiting Genitourinary: Negative for dysuria, frequency Integument: Negative for pruritis, rash Hematologic: Negative for bleeding, east bruising L&D Exam - Exam Exam: See Below - OB Specific Movement: Active Heart Tones: Present Heart Tones per Min: 140 Heart Rate (FHR) Variability: Moderate (6-25 bmp) - Bell Score Bell Score Cervix Position: Midposition Bell Score Consistency: Medium Bell Score Effacement: >80% Bell Score Dilation: 3-4 cm Bell Score 's Station: -2 Bell Score Total: 8 - Exam General: Alert, Oriented HEENT: Conjunctiva Clear, PERRLA Neck: Supple Lungs: Clear to Auscultation, Normal Respiratory Effort Cardiovascular: Regular Rate, Regular Rhythm GI/Abdominal Exam: Normal Bowel Sounds, Soft Extremities: Normal Inspection, Non-Tender, No Pedal Edema Skin: Warm, Dry Neurological: Cranial Nerves Intact Psychiatric: Alert, Normal Affect - Problem List (1) Normal labor SNOMED Code(s): 02443097 ICD Code: O80 - ENCOUNTER FOR FULL-TERM UNCOMPLICATED DELIVERY; Z37.9 - OUTCOME OF DELIVERY, UNSPECIFIED Status: Acute Current Visit: Yes Problem List Initiated/Reviewed/Updated: Yes Orders Last 24hrs: Active Orders 24 hr Category Date Time Status Patient Status [ADT] Routine ADT 11/11/20 08:20 Active Communication Order [RC] ASDIRECTED Care 11/11/20 08:20 Active Heart Tones [RC] PER UNIT ROUTINE Care 11/11/20 08:20 Active Notify Provider Vital Signs OB [RC] ASDIRECTED Care 11/11/20 08:20 Active Notify Provider [RC] PRN Care 11/11/20 08:20 Active Pump Management, Intrathecal [RC] ASDIRECTED Care 11/11/20 08:19 Active Up ad Amanda [RC] ASDIRECTED Care 11/11/20 08:20 Active Vital Signs [RC] PER UNIT ROUTINE Care 11/11/20 08:20 Active Nothing Per Oral Diet [DIET] Diet 11/11/20 Breakfast Active CBC W/O DIFF,HEMOGRAM [HEME] Routine Lab 11/11/20 08:20 Ordered CORONAVIRUS COVID-19 ORACIO [MOLEC] Stat Lab 11/11/20 08:20 Ordered Acetaminophen [TylenoL] Med 11/11/20 08:19 Ordered 650 mg PO Q4H PRN Carboprost Tromethamine [Hemabate DS] Med 11/11/20 08:19 Ordered 250 mcg IM ASDIRECTED PRN Lactated Ringers [Ringers, Lactated] 1,000 ml Med 11/11/20 08:30 Ordered IV ASDIRECTED Lactated Ringers [Ringers, Lactated] 1,000 ml Med 11/11/20 08:19 Ordered IV BOLUS Lidocaine 1% [Xylocaine-MPF 1%] Med 11/11/20 08:19 Ordered 30 ml INJECT ASDIRECTED PRN Methylergonovine [Methergine] Med 11/11/20 08:19 Ordered 0.2 mg IM ASDIRECTED PRN Ondansetron [Zofran] Med 11/11/20 08:19 Ordered 4 mg IVPUSH Q4H PRN Oxytocin/Normal Saline [Pitocin in NS 30 UNIT/500 ML] Med 11/11/20 08:30 Ordered 30 unit in 500 ml IV TITRATE Sodium Chloride 0.9% [Saline Flush] Med 11/11/20 08:19 Ordered 10 ml FLUSH ASDIRECTED PRN Tranexamic Acid [Cyklokapron] 1,000 mg Med 11/11/20 08:19 Ordered Sodium Chloride 0.9% [Normal Saline] 100 ml IV ONETIME miSOPROStoL [Cytotec] Med 11/11/20 08:19 Ordered 800 mcg RECTAL ASDIRECTED PRN Saline Lock Insert [OM.PC] Routine Oth 11/11/20 08:20 Ordered Resuscitation Status Routine Resus Stat 11/11/20 08:19 Ordered Medication Orders Acetaminophen (Acetaminophen 325 Mg Tab) 650 mg PO Q4H PRN PRN Reason: Pain (Mild 1-3) and fever Carboprost Tromethamine (Carboprost Tromethamine 250 Mcg/1 Ml Amp) 250 mcg IM ASDIRECTED PRN PRN Reason: HEMORRHAGE Tranexamic Acid 1,000 mg/ (Sodium Chloride) 110 mls @ 660 mls/hr IV ONETIME PRN PRN Reason: Bleeding Oxytocin/Sodium Chloride (Pitocin In Ns 30 Unit/500 Ml) 30 unit in 500 mls @ 2 mls/hr IV TITRATE DAYAN; Protocol Lactated Ringer's (Ringers, Lactated) 1,000 mls @ 100 mls/hr IV BOLUS ONE Stop: 11/11/20 18:18 Lactated Ringer's (Ringers, Lactated) 1,000 mls @ 125 mls/hr IV ASDIRECTED DAYAN Lidocaine HCl (Lidocaine 1% 30 Ml Sdv) 30 ml INJECT ASDIRECTED PRN PRN Reason: Perineal Repair Methylergonovine Maleate (Methylergonovine 0.2 Mg/1 Ml Amp) 0.2 mg IM ASDIRECTED PRN PRN Reason: Hemorrhage Misoprostol (Misoprostol 400 Mcg (4 X 100 Mcg Tab)) 800 mcg RECTAL ASDIRECTED PRN PRN Reason: Hemorrhage Ondansetron HCl (Ondansetron 4 Mg/2 Ml Sdv) 4 mg IVPUSH Q4H PRN PRN Reason: Nausea/Vomiting Sodium Chloride (Sodium Chloride 0.9% 10 Ml Syringe) 10 ml FLUSH ASDIRECTED PRN PRN Reason: Keep Vein Open Assessment/Plan Comment:: Assessment: Rossy is a 30 year old here in labor, FHT category 1 Plan: - Will admit to L&D for expectant management - Start TOCO and EFM and monitor for progress of labor - Obtain CBC, start IV fluids - AROM when able - Expect
[2020-11-11] MEDS: Ondansetron 4 MG/2 ML SDV IVPUSH PRN ×2 (10:09→12:04)
[2020-11-11] MEDS ORDERED: fentaNYL 100 MCG/2 ML SDV ONE (10:22)
[2020-11-11] MEDS ORDERED: Sodium Bicarbonate 4.2% 2.5 MEQ/5 ML SDV ONE ×2 (10:22→10:23)
[2020-11-11] MEDS ORDERED: EPINEPHrine 1 MG/1 ML Amp ONE ×2 (10:22→10:23)
[2020-11-11] MEDS: Lactated Ringers 1,000 ML IV ONE ×2 (10:23→18:40)
[2020-11-11] MEDS ORDERED: fentaNYL 100 MCG/2 ML SDV ITHECAL ONE (10:23)
[2020-11-11] MEDS: Lactated Ringers 1,000 ML IV SCH ×2 (10:23→15:13)
[2020-11-11] MEDS ORDERED: Sodium Chloride 0.9% 20 ML SDV ONE (10:23)
--- NOTE | 2020-11-11 10:41 | PCM.SN.2 ---
- Free Text/Narrative Note: Intrathecal. sitting position, sterile prep and drape. 1% lidocaine w bicarb for skinwheal to L2 L3 interspace, introducer x 1. Pos CSF, neg heme, neg parasthesia. 0.1 ml pf 1:1000 epi, 20 mcg pf sufenta, 30 mcg pf fentanyl, 0.4 ml pf NS and 6 mg of 0.75% pf marcaine injected after CSF aspiration. Pt to L lateral position. Procedure time 1115 to 1145
[2020-11-11] MEDS: Oxytocin/Normal Saline 30 UNIT/500 ML BAG IV SCH ×2 (13:38→15:17)
[2020-11-11] MEDS ORDERED: Benzocaine/Menthol 20%-0.5% Spray 56 GM Canister TOP PRN (13:48)
[2020-11-11] MEDS ORDERED: Oxytocin 10 Units/1 ML SDV IM PRN (13:48)
[2020-11-11] MEDS ORDERED: Zolpidem 5 MG Tab PO PRN (13:48)
[2020-11-11] MEDS ORDERED: Simethicone 80 MG Tab.Chew PO PRN (13:48)
[2020-11-11] MEDS ORDERED: Ondansetron 4 MG/2 ML SDV IVPUSH SCH (14:00)
--- NOTE | 2020-11-11 16:10 | PCM.DEL ---
L & D Note - General Info Date of Service: 11/11/20 - Delivery Note Labor: Spontaneous, Augmented by ARM Delivery Outcome: Livebirth Infant Delivery Method: Spontaneous Vaginal Delivery-Single Presentation: Vertex Nuchal Cord: Present, Reduced Anesthesia Type: Intrathecal Amniotic Fluid Description: Clear Episiotomy Type: None Laceration: 2nd Degree Suture type: Vicryl Suture size: 3-0 Placenta: Intact Cord: 3 Vessels Resuscitation Needed: No : Bulb Syringe, Stimulated, [place] Used, Warmer Used Score 1 min: 5 Score 5 min: 9 Delivery Comments (Free Text/Narrative):: Rossy Carvalho is a 30 year old female G3 now P3 at 37w3d who presented with spontaneous onset of labor on 11/11/2020. Category 1 tracing on admission. She was dilated to 3cm on admission. Artificial rupture of membranes at 5.5cm with clear fluid. She requested and received intrathecal. She progressed to complete dilation without complication and without further augmentation. She began pushing and delivered a liveborn female from the KELLEY position over small second degree perineal laceration in the midline. was stunned at delivery and did not have spontaneous cry after tactile stim and bulb suction. Baby was taken to the warmer and improved with further suction and tactile stim. She was returned to mom for skin to skin. Placenta delivered spontaneously intact with a 3 vessel cord. IV pitocin was started shortly after delivery of the placenta. 2nd degree perineal laceration was repaired with a 3-0 suture in a figure of eight fashion. Hemostasis confirmed. Mother and infant doing well. - General Info Date of Service: 11/11/20 - Patient Data Vitals - Most Recent: Last Vital Signs Temp 98.4 F 11/11/20 07:47 Pulse 86 11/11/20 08:04 Resp 18 11/11/20 08:04 BP 143/84 H 11/11/20 08:04 Pulse Ox Lab Results Last 24 Hours: Laboratory Results - last 24 hr 11/11/20 11/11/20 Range/Units 08:31 08:33 WBC 16.6 H (5.0-10.0) 10^3/uL RBC 4.43 (4.2-5.4) 10^6/uL Hgb 13.0 (12.0-16.0) g/dL Hct 38.9 (37.0-47.0) % MCV 87.8 (80-100) fL MCH 29.3 (27.0-34.0) pg MCHC 33.4 (33.0-35.0) g/dL Plt Count 189 (150-450) 10^3/uL SARS-CoV-2 RNA (ORACIO) Negative (NEGATIVE) Med Orders - Current: Current Medications Acetaminophen (Acetaminophen 325 Mg Tab) 650 mg PO Q4H PRN PRN Reason: Pain (Mild 1-3) and fever Benzocaine/Menthol (Benzocaine/Menthol 20%-0.5% [place] 56 Gm Canister) 0 gm TOP Q4H PRN PRN Reason: Perineal comfort measures Carboprost Tromethamine (Carboprost Tromethamine 250 Mcg/1 Ml Amp) 250 mcg IM ASDIRECTED PRN PRN Reason: HEMORRHAGE Docusate Sodium (Docusate Sodium 100 Mg Cap) 100 mg PO BID PRN PRN Reason: Constipation Tranexamic Acid 1,000 mg/ (Sodium Chloride) 110 mls @ 660 mls/hr IV ONETIME PRN PRN Reason: Bleeding Oxytocin/Sodium Chloride (Pitocin In Ns 30 Unit/500 Ml) 30 unit in 500 mls @ 2 mls/hr IV TITRATE DAYAN; Protocol Last Admin: 11/11/20 15:17 Dose: 125 munits/min, 125 mls/hr Documented by: Lactated Ringer's (Ringers, Lactated) 1,000 mls @ 100 mls/hr IV BOLUS ONE Stop: 11/11/20 18:18 Lactated Ringer's (Ringers, Lactated) 1,000 mls @ 125 mls/hr IV ASDIRECTED DAYAN Last Admin: 11/11/20 15:13 Dose: 125 mls/hr Documented by: Ibuprofen (Ibuprofen 800 Mg Tab) 800 mg PO Q8H PRN PRN Reason: cramping Lidocaine HCl (Lidocaine 1% 30 Ml Sdv) 30 ml INJECT ASDIRECTED PRN PRN Reason: Perineal Repair Methylergonovine Maleate (Methylergonovine 0.2 Mg/1 Ml Amp) 0.2 mg IM ASDIRECTED PRN PRN Reason: Hemorrhage Misoprostol (Misoprostol 400 Mcg (4 X 100 Mcg Tab)) 800 mcg RECTAL ASDIRECTED PRN PRN Reason: Hemorrhage Ondansetron HCl (Ondansetron 4 Mg/2 Ml Sdv) 4 mg IVPUSH Q4H PRN PRN Reason: Nausea/Vomiting Last Admin: 11/11/20 12:04 Dose: 4 mg Documented by: Ondansetron HCl (Ondansetron 4 Mg/2 Ml Sdv) 4 mg IVPUSH Q8HR [facility] Oxytocin (Oxytocin 10 Units/1 Ml Sdv) 10 unit IM ONETIME PRN PRN Reason: Bleeding Prenat Multivit/[place]/Iron/Folic Ac ( Multivitamin With Calcium/Folic Acid/Iron Tab) 1 each PO DAILY DAYAN Simethicone (Simethicone 80 Mg Tab.Chew) 80 mg PO Q4H PRN PRN Reason: Gas Sodium Chloride (Sodium Chloride 0.9% 10 Ml Syringe) 10 ml FLUSH ASDIRECTED PRN PRN Reason: Keep Vein Open Zolpidem Tartrate (Zolpidem 5 Mg Tab) 5 mg PO BEDTIME PRN PRN Reason: Insomnia Discontinued Medications Epinephrine HCl (Epinephrine 1 Mg/1 Ml Amp) Confirm Administered Dose 1 mg .ROUTE .STK-MED ONE Stop: 11/11/20 10:23 Fentanyl (Fentanyl 100 Mcg/2 Ml Sdv) Confirm Administered Dose 100 mcg .ROUTE .STK-MED ONE Stop: 11/11/20 10:23 Sodium Bicarbonate (Sodium Bicarbonate 4.2% 2.5 Meq/5 Ml Sdv) Confirm Administered Dose 2.5 meq .ROUTE .STK-MED ONE Stop: 11/11/20 10:23 Sufentanil Citrate (Sufentanil 50 Mcg/1 Ml Amp) Confirm Administered Dose 50 mcg .ROUTE .STK-MED ONE Stop: 11/11/20 10:23 - Problem List & Annotations (1) Normal labor SNOMED Code(s): 27806498 Code(s): O80 - ENCOUNTER FOR FULL-TERM UNCOMPLICATED DELIVERY; Z37.9 - OUTCOME OF DELIVERY, UNSPECIFIED Status: Acute Current Visit: Yes - Problem List Review Problem List Initiated/Reviewed/Updated: Yes - My Orders Last 24 Hours: My Active Orders 11/11/20 Breakfast Nothing Per Oral Diet [DIET] Regular Diet [DIET] 11/11/20 08:19 Pump Management, Intrathecal [RC] ASDIRECTED Acetaminophen [TylenoL] 650 mg PO Q4H PRN Carboprost Tromethamine [Hemabate DS] 250 mcg IM ASDIRECTED PRN Lactated Ringers [Ringers, Lactated] 1,000 ml IV BOLUS Lidocaine 1% [Xylocaine-MPF 1%] 30 ml INJECT ASDIRECTED PRN Methylergonovine [Methergine] 0.2 mg IM ASDIRECTED PRN Ondansetron [Zofran] 4 mg IVPUSH Q4H PRN Sodium Chloride 0.9% [Saline Flush] 10 ml FLUSH ASDIRECTED PRN Tranexamic Acid [Cyklokapron] 1,000 mg Sodium Chloride 0.9% [Normal Saline] 100 ml IV ONETIME miSOPROStoL [Cytotec] 800 mcg RECTAL ASDIRECTED PRN Resuscitation Status Routine 11/11/20 08:20 Patient Status [ADT] Routine Communication Order [RC] ASDIRECTED Notify Provider Vital Signs OB [RC] ASDIRECTED Notify Provider [RC] PRN Up ad Amanda [RC] ASDIRECTED Vital Signs [RC] PER UNIT ROUTINE Saline Lock Insert [OM.PC] Routine 11/11/20 08:30 Lactated Ringers [Ringers, Lactated] 1,000 ml IV ASDIRECTED Oxytocin/Normal Saline [Pitocin in NS 30 UNIT/500 ML] 30 unit in 500 ml IV TITRATE 11/11/20 Lunch Regular Diet [DIET] 11/11/20 13:48 Vital Signs [RC] PFP Benzocaine/Menthol [Dermoplast Pain Relief [place]olin] See Dose Instructions TOP Q4H PRN Docusate Sodium [Colace] 100 mg PO BID PRN Ibuprofen [Motrin] 800 mg PO Q8H PRN Oxytocin [Pitocin] 10 unit IM ONETIME PRN Simethicone 80 mg PO Q4H PRN Zolpidem [Ambien] 5 mg PO BEDTIME PRN 11/11/20 13:50 Notify Provider Vital Signs OB [RC] ASDIRECTED Up ad Amanda [RC] ASDIRECTED CBC W/O DIFF,HEMOGRAM [HEME] Routine Assess Lochia [WOMSER] Per Unit Routine Assess Uterine Involution [WOMSER] Per Unit Routine Breast Pump [WOMSER] Per Unit Routine Ice Therapy [OM.PC] Per Unit Routine Perineal Care [OM.PC] Per Unit Routine Saline Lock Insert [OM.PC] Urgent Sitz Bath [OM.PC] Per Unit Routine 11/11/20 Dinner Regular Diet [DIET] 11/12/20 09:00 Vit with Ca/FA/Iron [ Plus Iron] 1 each PO DAILY - Plan Plan:: Assessment: Rossy is a 30 year old here in labor, FHT category 1 Plan: - Will admit to L&D for expectant management - Start TOCO and EFM and monitor for progress of labor - Obtain CBC, start IV fluids - AROM when able - Expect
[2020-11-11] MEDS: Docusate Sodium 100 MG Cap PO PRN (21:46)
[2020-11-11] MEDS: Ibuprofen 800 MG Tab PO PRN (21:47)
[2020-11-12] MEDS: Ibuprofen 800 MG Tab PO PRN ×2 (06:42→14:00)
[2020-11-12] MEDS ORDERED: Prenatal Multivitamin with Calcium/Folic Acid/Iron Tab PO SCH (09:00)
--- NOTE | 2020-11-12 09:37 | PCM.PNPP ---
- General Info Date of Service: 11/12/20 Admission Dx/Problem (Free Text): Patient Status Order with Admit Dx/Problem Labor, now s/p [facility] 11/11/20 08:20 Patient Status [ADT] Routine Admission Diagnosis/Problem Admission Diagnosis/Problem Labor without complication 11/11/20 08:30 Subjective Update: Rossy Carvalho is a 30 year old female who is day one from [facility]. She is ambulating, voiding, and tolerating a regular diet without difficulty. She is . She is up and ambulating well, tolerating oral intake, and using the restroom. She has good bowel sounds and passing gas. She has not yet had a bowel movement. She has no other concerns. - Review of Systems General: Denies: Fever, Fatigue, Chills HEENT: Denies: Headaches, Visual Changes Pulmonary: Denies: Shortness of Breath, Cough Cardiovascular: Denies: Chest Pain, Palpitations Gastrointestinal: Denies: Abdominal Pain, Nausea, Vomiting Genitourinary: Denies: Dysuria, Frequency, Burning Skin: Denies: Cyanosis, Diaphoresis, Rash Neurological: Denies: Dizziness, Headache, Numbness, Tingling, Weakness - General Info Date of Service: 11/12/20 - Patient Data Vital Signs - Most Recent: Last Vital Signs Temp 99.6 F 11/11/20 20:00 Pulse 93 11/11/20 20:00 Resp 16 11/11/20 20:00 BP 127/84 11/11/20 20:00 Pulse Ox 96 11/11/20 20:00 Weight - Most Recent: 162 lb Lab Results - Last 24 Hours: Laboratory Results - last 24 hr 11/12/20 Range/Units 05:45 WBC 14.8 H (5.0-10.0) 10^3/uL RBC 3.89 L (4.2-5.4) 10^6/uL Hgb 11.3 L D (12.0-16.0) g/dL Hct 34.2 L (37.0-47.0) % MCV 87.9 (80-100) fL MCH 29.0 (27.0-34.0) pg MCHC 33.0 (33.0-35.0) g/dL Plt Count 159 (150-450) 10^3/uL Med Orders - Current: Current Medications Acetaminophen (Acetaminophen 325 Mg Tab) 650 mg PO Q4H PRN PRN Reason: Pain (Mild 1-3) and fever Benzocaine/Menthol (Benzocaine/Menthol 20%-0.5% [place] 56 Gm Canister) 0 gm TOP Q4H PRN PRN Reason: Perineal comfort measures Last Admin: 11/11/20 16:20 Dose: 1 spray Documented by: Docusate Sodium (Docusate Sodium 100 Mg Cap) 100 mg PO BID PRN PRN Reason: Constipation Last Admin: 11/11/20 21:46 Dose: 100 mg Documented by: Tranexamic Acid 1,000 mg/ (Sodium Chloride) 110 mls @ 660 mls/hr IV ONETIME PRN PRN Reason: Bleeding Lactated Ringer's (Ringers, Lactated) 1,000 mls @ 125 mls/hr IV ASDIRECTED DAYAN Last Admin: 11/11/20 15:13 Dose: 125 mls/hr Documented by: Ibuprofen (Ibuprofen 800 Mg Tab) 800 mg PO Q8H PRN PRN Reason: cramping Last Admin: 11/12/20 06:42 Dose: 800 mg Documented by: Lidocaine HCl (Lidocaine 1% 30 Ml Sdv) 30 ml INJECT ASDIRECTED PRN PRN Reason: Perineal Repair Prenat Multivit/[employer]/Iron/Folic Ac ( Multivitamin With Calcium/Folic Acid/Iron Tab) 1 each PO DAILY [facility] Simethicone (Simethicone 80 Mg Tab.Chew) 80 mg PO Q4H PRN PRN Reason: Gas Sodium Chloride (Sodium Chloride 0.9% 10 Ml Syringe) 10 ml FLUSH ASDIRECTED PRN PRN Reason: Keep Vein Open Zolpidem Tartrate (Zolpidem 5 Mg Tab) 5 mg PO BEDTIME PRN PRN Reason: Insomnia Discontinued Medications Carboprost Tromethamine (Carboprost Tromethamine 250 Mcg/1 Ml Amp) 250 mcg IM ASDIRECTED PRN PRN Reason: HEMORRHAGE Epinephrine HCl (Epinephrine 1 Mg/1 Ml Amp) Confirm Administered Dose 1 mg .ROUTE .STK-MED ONE Stop: 11/11/20 10:23 Last Admin: 11/11/20 18:41 Dose: Not Given Documented by: Fentanyl (Fentanyl 100 Mcg/2 Ml Sdv) Confirm Administered Dose 100 mcg .ROUTE .STK-MED ONE Stop: 11/11/20 10:23 Last Admin: 11/11/20 18:41 Dose: Not Given Documented by: Oxytocin/Sodium Chloride (Pitocin In Ns 30 Unit/500 Ml) 30 unit in 500 mls @ 2 mls/hr IV TITRATE DAYAN; Protocol Last Titration: 11/11/20 16:00 Dose: 0 munits/min, 0 mls/hr Documented by: Lactated Ringer's (Ringers, Lactated) 1,000 mls @ 100 mls/hr IV BOLUS ONE Stop: 11/11/20 18:18 Last Admin: 11/11/20 18:40 Dose: Not Given Documented by: Methylergonovine Maleate (Methylergonovine 0.2 Mg/1 Ml Amp) 0.2 mg IM ASDIRECTED PRN PRN Reason: Hemorrhage Misoprostol (Misoprostol 400 Mcg (4 X 100 Mcg Tab)) 800 mcg RECTAL ASDIRECTED PRN PRN Reason: Hemorrhage Ondansetron HCl (Ondansetron 4 Mg/2 Ml Sdv) 4 mg IVPUSH Q4H PRN PRN Reason: Nausea/Vomiting Last Admin: 11/11/20 12:04 Dose: 4 mg Documented by: Ondansetron HCl (Ondansetron 4 Mg/2 Ml Sdv) 4 mg IVPUSH Q8HR [facility] Last Admin: 11/11/20 19:07 Dose: Not Given Documented by: Oxytocin (Oxytocin 10 Units/1 Ml Sdv) 10 unit IM ONETIME PRN PRN Reason: Bleeding Sodium Bicarbonate (Sodium Bicarbonate 4.2% 2.5 Meq/5 Ml Sdv) Confirm Administered Dose 2.5 meq .ROUTE .STK-MED ONE Stop: 11/11/20 10:23 Last Admin: 11/11/20 18:41 Dose: Not Given Documented by: Sufentanil Citrate (Sufentanil 50 Mcg/1 Ml Amp) Confirm Administered Dose 50 mcg .ROUTE .STK-MED ONE Stop: 11/11/20 10:23 Last Admin: 11/11/20 18:42 Dose: Not Given Documented by: - Infant Interaction Support Person: - Recovery Exam Fundal Tone: Firm Fundal Level: 1 Fingerbreadths Below Umbilicus Fundal Placement: Midline Lochia Amount: Small Lochia Color: Rubra/Red Perineum Description: Intact, Minimal Bruising/Swelling Episiotomy/Laceration: None Bladder Status: Voiding - Exam General: Alert, Oriented HEENT: Pupils Equal, Pupils Reactive Neck: Supple Lungs: Clear to Auscultation, Normal Respiratory Effort Cardiovascular: Regular Rate, Regular Rhythm GI/Abdominal Exam: Normal Bowel Sounds, Soft Extremities: Non-Tender, No Pedal Edema Skin: Warm, Dry Neurological: No New Focal Deficit Psy/Mental Status: Alert, Normal Affect, Normal Mood - Problem List & Annotations (1) Normal labor SNOMED Code(s): 86252670 Code(s): O80 - ENCOUNTER FOR FULL-TERM UNCOMPLICATED DELIVERY; Z37.9 - OUTCOME OF DELIVERY, UNSPECIFIED Status: Acute Current Visit: Yes (2) (normal spontaneous vaginal delivery) SNOMED Code(s): 64728157, 666508739 Code(s): O80 - ENCOUNTER FOR FULL-TERM UNCOMPLICATED DELIVERY Status: Acute Current Visit: Yes - Problem List Review Problem List Initiated/Reviewed/Updated: Yes - My Orders Last 24 Hours: My Active Orders 11/11/20 Lunch Regular Diet [DIET] 11/11/20 13:48 Benzocaine/Menthol [Dermoplast Pain Relief [place]] See Dose Instructions TOP Q4H PRN Docusate Sodium [Colace] 100 mg PO BID PRN Ibuprofen [Motrin] 800 mg PO Q8H PRN Simethicone 80 mg PO Q4H PRN Zolpidem [Ambien] 5 mg PO BEDTIME PRN 11/11/20 13:50 Notify Provider Vital Signs OB [RC] ASDIRECTED Up ad Amanda [RC] ASDIRECTED Assess Lochia [WOMSER] Per Unit Routine Assess Uterine Involution [WOMSER] Per Unit Routine Breast Pump [WOMSER] Per Unit Routine Ice Therapy [OM.PC] Per Unit Routine Perineal Care [OM.PC] Per Unit Routine Saline Lock Insert [OM.PC] Urgent Sitz Bath [OM.PC] Per Unit Routine 11/11/20 Dinner Regular Diet [DIET] 11/12/20 09:00 Vit with Ca/FA/Iron [ Plus Iron] 1 each PO DAILY - Plan Plan:: Assessment: Rossy is a 30 year old who is day #1 from Plan: - Rossy is doing well. She has no symptoms of dizziness or shortness of breath. - Continue to encourage ambulation - Continue with advancing routine cares - Discharge likely later this afternoon
[2020-11-12] MEDS: Docusate Sodium 100 MG Cap PO PRN (09:43)
--- NOTE | 2020-11-12 11:02 | PCM.DCSUM1 ---
Discharge Summary - Hospital Course Free Text/Narrative:: Rossy Carvalho is a 30 year old female at 37w3d who presented to labor and delivery in labor on 11/11/2020. She had a normal spontaneous vaginal delivery and delivered a viable female with Apgars of 5 and 9 at 1 and 5 minutes respectively. GBS negative status. Small second degree perineal laceration was noted after delivery which was repaired with a figure of eight. course was otherwise unremarkable. She has been ambulating, voiding, and tolerating a general diet without difficulty. Pain has been well controlled with oral medications. She feels ready for discharge home. - Discharge Data Discharge Date: 11/12/20 Discharge Disposition: Home, Self-Care 01 Condition: Good - Referral to Home Health Primary Care Physician: Yolis Nava MD - Discharge Diagnosis/Problem(s) (1) Normal labor SNOMED Code(s): 53715152 ICD Code: O80 - ENCOUNTER FOR FULL-TERM UNCOMPLICATED DELIVERY; Z37.9 - OUTCOME OF DELIVERY, UNSPECIFIED Status: Acute (2) (normal spontaneous vaginal delivery) SNOMED Code(s): 14202990, [id number] ICD Code: O80 - ENCOUNTER FOR FULL-TERM UNCOMPLICATED DELIVERY Status: Acute - Patient Instructions Diet: Regular Diet as Tolerated - Discharge Plan *PRESCRIPTION DRUG MONITORING PROGRAM REVIEWED*: Not Applicable *COPY OF PRESCRIPTION DRUG MONITORING REPORT IN PATIENT MELANY: Not Applicable Home Medications: Home Meds Cholecalciferol (Vitamin D3) [Vitamin D] 1 tab PO DAILY 10/31/16 [History] Ferrous Sulfate [Iron] 1 tab PO BID 10/31/16 [History] Vits #93/Iron Fum/FA [ Formula Tablet] 1 tab PO DAILY 10/31/16 [History] Folic Acid 1 mg PO DAILY 06/03/18 [History] Acetaminophen [Tylenol] 650 mg PO Q4H PRN tablet 11/12/20 [Rx] Ibuprofen [Motrin] 800 mg PO Q8H PRN tablet 11/12/20 [Rx] Patient Handouts: Baby Blues, Care After Vaginal Delivery - Discharge Summary/Plan Comment DC Time >30 min.: Yes Discharge Summary/Plan Comment: Rossy is doing well after her vaginal delivery. Discharge instructions have been given and reviewed by nursing staff. check up will be arranged for approximately 6 weeks from now. - Patient Data Vitals - Most Recent: Last Vital Signs Temp 99.6 F 11/11/20 20:00 Pulse 93 11/11/20 20:00 Resp 16 11/11/20 20:00 BP 127/84 11/11/20 20:00 Pulse Ox 96 11/11/20 20:00 Weight - Most Recent: 162 lb Lab Results - Last 24 hrs: Laboratory Results - last 24 hr 11/12/20 Range/Units 05:45 WBC 14.8 H (5.0-10.0) 10^3/uL RBC 3.89 L (4.2-5.4) 10^6/uL Hgb 11.3 L D (12.0-16.0) g/dL Hct 34.2 L (37.0-47.0) % MCV 87.9 (80-100) fL MCH 29.0 (27.0-34.0) pg MCHC 33.0 (33.0-35.0) g/dL Plt Count 159 (150-450) 10^3/uL Med Orders - Current: Current Medications Acetaminophen (Acetaminophen 325 Mg Tab) 650 mg PO Q4H PRN PRN Reason: Pain (Mild 1-3) and fever Last Admin: 11/12/20 09:47 Dose: 650 mg Documented by: Benzocaine/Menthol (Benzocaine/Menthol 20%-0.5% [place] 56 Gm Canister) 0 gm TOP Q4H PRN PRN Reason: Perineal comfort measures Last Admin: 11/11/20 16:20 Dose: 1 spray Documented by: Docusate Sodium (Docusate Sodium 100 Mg Cap) 100 mg PO BID PRN PRN Reason: Constipation Last Admin: 11/12/20 09:43 Dose: 100 mg Documented by: Tranexamic Acid 1,000 mg/ (Sodium Chloride) 110 mls @ 660 mls/hr IV ONETIME PRN PRN Reason: Bleeding Lactated Ringer's (Ringers, Lactated) 1,000 mls @ 125 mls/hr IV ASDIRECTED DAYAN Last Admin: 11/11/20 15:13 Dose: 125 mls/hr Documented by: Ibuprofen (Ibuprofen 800 Mg Tab) 800 mg PO Q8H PRN PRN Reason: cramping Last Admin: 11/12/20 06:42 Dose: 800 mg Documented by: Lidocaine HCl (Lidocaine 1% 30 Ml Sdv) 30 ml INJECT ASDIRECTED PRN PRN Reason: Perineal Repair Prenat Multivit/[place]/Iron/Folic Ac ( Multivitamin With Calcium/Folic Acid/Iron Tab) 1 each PO DAILY [facility] Last Admin: 11/12/20 09:43 Dose: 1 each Documented by: Simethicone (Simethicone 80 Mg Tab.Chew) 80 mg PO Q4H PRN PRN Reason: Gas Sodium Chloride (Sodium Chloride 0.9% 10 Ml Syringe) 10 ml FLUSH ASDIRECTED PRN PRN Reason: Keep Vein Open Zolpidem Tartrate (Zolpidem 5 Mg Tab) 5 mg PO BEDTIME PRN PRN Reason: Insomnia Discontinued Medications Carboprost Tromethamine (Carboprost Tromethamine 250 Mcg/1 Ml Amp) 250 mcg IM ASDIRECTED PRN PRN Reason: HEMORRHAGE Epinephrine HCl (Epinephrine 1 Mg/1 Ml Amp) Confirm Administered Dose 1 mg .ROUTE .STK-MED ONE Stop: 11/11/20 10:23 Last Admin: 11/11/20 18:41 Dose: Not Given Documented by: Fentanyl (Fentanyl 100 Mcg/2 Ml Sdv) Confirm Administered Dose 100 mcg .ROUTE .STK-MED ONE Stop: 11/11/20 10:23 Last Admin: 11/11/20 18:41 Dose: Not Given Documented by: Oxytocin/Sodium Chloride (Pitocin In Ns 30 Unit/500 Ml) 30 unit in 500 mls @ 2 mls/hr IV TITRATE [facility]; Protocol Last Titration: 11/11/20 16:00 Dose: 0 munits/min, 0 mls/hr Documented by: Lactated Ringer's (Ringers, Lactated) 1,000 mls @ 100 mls/hr IV BOLUS ONE Stop: 11/11/20 18:18 Last Admin: 11/11/20 18:40 Dose: Not Given Documented by: Methylergonovine Maleate (Methylergonovine 0.2 Mg/1 Ml Amp) 0.2 mg IM ASDIRECTED PRN PRN Reason: Hemorrhage Misoprostol (Misoprostol 400 Mcg (4 X 100 Mcg Tab)) 800 mcg RECTAL ASDIRECTED PRN PRN Reason: Hemorrhage Ondansetron HCl (Ondansetron 4 Mg/2 Ml Sdv) 4 mg IVPUSH Q4H PRN PRN Reason: Nausea/Vomiting Last Admin: 11/11/20 12:04 Dose: 4 mg Documented by: Ondansetron HCl (Ondansetron 4 Mg/2 Ml Sdv) 4 mg IVPUSH Q8HR DAYAN Last Admin: 11/11/20 19:07 Dose: Not Given Documented by: Oxytocin (Oxytocin 10 Units/1 Ml Sdv) 10 unit IM ONETIME PRN PRN Reason: Bleeding Sodium Bicarbonate (Sodium Bicarbonate 4.2% 2.5 Meq/5 Ml Sdv) Confirm Administered Dose 2.5 meq .ROUTE .[email or web address] ONE Stop: 11/11/20 10:23 Last Admin: 11/11/20 18:41 Dose: Not Given Documented by: Sufentanil Citrate (Sufentanil 50 Mcg/1 Ml Amp) Confirm Administered Dose 50 mcg .ROUTE [email or web address] ONE Stop: 11/11/20 10:23 Last Admin: 11/11/20 18:42 Dose: Not Given Documented by:
[2020-11-12 17:35] VITALS: BP 141/82; PULSE 79
== END 2020-11-12 15:57 | disposition home or self-care (01) | DRG 560 ==
LOC: DL.OBCHECK 07:38 → DL.OB 09:17 → OBSVTOIN 13:35
PROVIDERS: ADMIT Family Medicine; ATTEND Family Medicine
PROC: 10E0XZZ Delivery of Products of Conception, External Approach (ICD-10-PCS; principal; 2020-11-11)
PROC: 10907ZC Drainage of Amniotic Fluid, Therapeutic from Products of Conception, Via Natural or Artificial Opening (ICD-10-PCS; 2020-11-11)
PROC: 0KQM0ZZ Repair Perineum Muscle, Open Approach (ICD-10-PCS; 2020-11-11)
DX: O80 Encounter for full-term uncomplicated delivery (principal); Z37.0 Single live birth; O70.1 Second degree perineal laceration during delivery; Z20.822 Contact with and (suspected) exposure to COVID-19; Z86.16 Personal history of COVID-19; Z88.0 Allergy status to penicillin; Z88.2 Allergy status to sulfonamides; Z3A.37 37 weeks gestation of pregnancy
CPT/HCPCS: 36415; 59409; 85027; A9270-GY; J0171; J2405; J2590; J3010; J7120; U0002

== ENCOUNTER 2022-04-10 04:20 | Inpatient (IN) | payer BC | END 2022-04-11 11:00 | disposition home or self-care (01) | DRG 560 | LOC: DL.OBCHECK 04:20 → DL.ZCENSUS 04:30 → OBSVTOIN 09:46 | PROVIDERS: ADMIT Family Medicine; ATTEND Family Medicine | PROC: 10E0XZZ Delivery of Products of Conception, External Approach (ICD-10-PCS; principal; 2022-04-10) | PROC: 3E0R3BZ Introduction of Anesthetic Agent into Spinal Canal, Percutaneous Approach (ICD-10-PCS; 2022-04-10) | PROC: 4A1HXCZ Monitoring of Products of Conception, Cardiac Rate, External Approach (ICD-10-PCS; 2022-04-10) | DX: O13.4 Gestational [pregnancy-induced] hypertension without significant proteinuria, complicating childbirth (principal); Z3A.38 38 weeks gestation of pregnancy; Z37.0 Single live birth; O99.284 Endocrine, nutritional and metabolic diseases complicating childbirth; E03.9 Hypothyroidism, unspecified; O62.2 Other uterine inertia | CPT/HCPCS: 01967; 36415; 85027; U0002 ==